=== PATIENT | female | born 1995 | race Hispanic/Latino ===

== ENCOUNTER 2020-10-08 18:20 | Emergency (ER) | payer SELFPAY ==
[2020-10-08 20:43] LABS: ALT (SGPT) 18 U/L (8-55); AST (SGOT) 21 U/L (5-34); Albumin 4.3 g/dL (3.5-5.0); Alkaline Phosphatase 77 U/L (40-110); Anion Gap 14 mmol/L (10-20); BUN (Urea Nitrogen) 13 mg/dL (7.0-18.7); Bilirubin, Total 0.2 mg/dL (0.2-1.2); Calc. Creatinine Clearance 0 mL/min (70-130); Carbon Dioxide 24 mmol/L (22-29); Chloride 108 mmol/L (98-107); Estimated GFR-MDRD Greater than 90; Globulin 2.8 g/dL (2.4-3.5); Glucose 77 mg/dL (70-105); Potassium 4.2 mmol/L (3.5-5.1); Protein, Total 7.1 g/dL (6.0-8.3); Sodium 142 mmol/L (136-145)
[2020-10-08 21:10] LABS: Red Blood Cell (RBC) Count 4.52 mill/uL (4.20-5.40); White Blood Cell (WBC) Count 9.1 thou/uL (4.8-10.8)
[2020-10-08 21:11] LABS: Hemoglobin 13.7 g/dL (12.0-16.0); Manual Diff?? YES; Mean Corpuscular HGB CONC 32.9 g/dL (32.0-36.0); Mean Corpuscular Hemoglobin 30.2 pg (27.0-31.0); Mean Corpuscular Volume 91.8 fL (78.0-98.0); Platelet Count 279 thou/uL (130-400); RBC Distribution Width 11.6 % (11.5-14.5)
[2020-10-08 21:13] LABS: MDiff Complete? YES
[2020-10-08 21:27] LABS: Mean Platelet Volume 8.4 fL (7.4-10.4)
[2020-10-08 21:28] LABS: Band 2 % (5-11); Eosinophils 1 % (0-10); Lymphocytes 30 % (21-51); Monocytes 4 % (0-10); Neutrophil 58 % (42-75); Reactive Lymphocytes 5 % (0-10)
[2020-10-08 21:29] LABS: Anisocytosis SLIGHT = 6-15 cells (100X) (0-5/hpf)
[2020-10-08 21:40] LABS: Clarity Clear (Clear)
[2020-10-08 21:41] LABS: Bilirubin Negative (Negative); Glucose, Urine (Dipstick) Negative (Negative); Ketone, Urine Negative (Negative); Leukocyte Negative (Negative); Nitrite Negative (Negative); Protein, Urine (Dipstick) Trace mg/dL (Neg-Trace); Specific Gravity, Urine 1.025 (1.005-1.030)
[2020-10-08 21:42] LABS: Blood, Urine Large (Negative)
[2020-10-08 21:43] LABS: Bacteria/HPF Rare-Few HPF (None Seen); RBC/HPF 21-50 HPF (0-3); Squamous Epithelial 0-3 HPF (0-3); WBC/HPF 0-3 HPF (0-3)
[2020-10-08 21:44] LABS: Mucous/LPF 1+ LPF (<2+)
[2020-10-12 23:09] LABS: Chlam.trachomatis by PCR,Urine Not Detected (NotDetected)
== END 2020-10-08 22:51 | disposition short-term general hospital (02) ==
LOC: MADERS 18:20
DX: O46.91 Antepartum hemorrhage, unspecified, first trimester (principal); Z3A.01 Less than 8 weeks gestation of pregnancy
CPT/HCPCS: 80053; 81003; 81015; 84702; 85025; 87491; 87591; 99285